=== PATIENT | male | born 1940 | race Caucasian/White ===

== ENCOUNTER 2016-09-28 14:13 | Inpatient (IN) | payer MEDICARE, OTHER ==
[~2016-09-28 14:13] MED LIST: AMLODIPINE-BEN1 EA11 PO; APRODINE PO; ASPIRIN325 M1 PO; CALCIUM + D T1 UDTAB PO; COUMADIN2.5 MG PO; COUMADIN5 MG PO; E-400400 UNIT PO; FOLIC ACID0.4 MG PO; GLUCOSAMIN1 TAB.CHEW PO; MAXZIDE1 TA2 PO; METOPROLOL SUC200 M1 PO; MILK OF MA400 MG/5 M PO; NIASPAN1000 MG PO; NORCO 7.5/325 T1 TAB PO; VITAMIN B6100 MG PO
[2016-09-28] MEDS ORDERED: ATORVASTATIN CA20 M1 PO (14:22)
[2016-09-28] MEDS ORDERED: ALDACTONE50 M1 PO (14:22)
[2016-09-28] MEDS ORDERED: FLOMAX0.4 M1 PO (14:23)
[2016-09-28] MEDS ORDERED: ALEVE220 M4 PO (14:51)
[2016-09-28] MEDS ORDERED: VITAMIN D32000 UNI3 PO (14:51)
[2016-09-28] MEDS ORDERED: ONE DAILY1 EAC4 PO (14:51)
[2016-09-28] MEDS ORDERED: APRODINE PO (14:51)
[2016-09-28 15:03] LABS: BASO % 0.6 % (0-2); EOS % 2.4 % (0-7); EOSINOPHIL ABSOLUTE COUNT 0.2 tho/cmm (0.0-0.7); HCT-HEMATOCRIT 41.4 % (36.0-53.5); HGB-HEMOGLOBIN 14.2 gm/dl (13.5-17.0); LYMPH % 14.3 % (20-45); MCHC MEAN CORPUSCULAR HGB CONC 34.3 % (32.0-36.0); MCV (MEAN CELL VOLUME) 93.2 fl (82.0-96.0); MEAN PLATELET VOLUME 10.6 cmc (9.4-12.4); MONO % 8.7 % (0-12); MONOCYTE ABSOLUTE COUNT 0.6 tho/cmm (0.0-1.2); PLATELET COUNT 179 tho/cmm (150-450); RED BLOOD COUNT 4.44 mil/cmm (4.40-5.70); RED CELL DISTRIBUTION WIDTH 12.9 % (12.4-16.4); WHITE BLOOD COUNT 6.8 tho/cmm (4.0-10.0)
[2016-09-28 15:20] LABS: BLOOD UREA NITROGEN 74 mg/dl (6-24); CARBON DIOXIDE-VENOUS 16 mmol/L (22-32); CHLORIDE 109 mmol/l (96-110); CREATININE 9.53 mg/dl (0.60-1.30); GLUCOSE 112 mg/dL (70-110); SODIUM 135 mmol/L (135-145); eGFR VALUE FOR BLACK 6 mL/Min
[2016-09-28 15:39] LABS: ANION GAP 18 mmol/L (0-20); POTASSIUM 8.3 mmol/L (3.7-5.1)
[2016-09-28 17:15] LABS: PROTHROMBIN TIME 11.9 SECONDS (9.0-13.6)
[2016-09-28 18:00] LABS: URINE SODIUM-RANDOM 127 mmol/L (20-110)
[2016-09-28 18:04] LABS: URINE BILIRUBIN NEGATIVE (NEG); URINE BLOOD NEGATIVE (NEG); URINE GLUCOSE (UA) NEGATIVE (NEG); URINE KETONE NEGATIVE (NEG); URINE LEUKOCYTE ESTERASE POSITIVE (NEG); URINE NITRITE NEGATIVE (NEG); URINE PROTEIN NEGATIVE (NEG)
[2016-09-28 18:06] LABS: URINE APPEARANCE HAZY; URINE COLOR YELLOW
[2016-09-28 18:17] LABS: URINE EPITHELIAL CELLS 0 /[HPF] (0-10); URINE RBC 0 /[HPF] (0-5); URINE WBC 0 /[HPF] (0-5)
[2016-09-28 19:30] LABS: ALB/GLOB RATIO 0.8 (0.8-2.0); ALBUMIN 3.6 g/dl (3.5-5.0); BILIRUBIN,DIRECT 0.2 mg/dl (0.0-0.3); BILIRUBIN,INDIRECT 0.4 mg/dL (0.0-1.0); BILIRUBIN,TOTAL 0.6 mg/dl (0.0-1.5)
[2016-09-28 19:32] LABS: POTASSIUM 7.1 mmol/L (3.7-5.1)
[2016-09-29 04:16] LABS: BASO % 0.6 % (0-2); BASO ABSOLUTE COUNT 0.1 tho/cmm (0.0-0.2); EOS % 3.3 % (0-7); EOSINOPHIL ABSOLUTE COUNT 0.3 tho/cmm (0.0-0.7); HCT-HEMATOCRIT 41.2 % (36.0-53.5); HGB-HEMOGLOBIN 14.1 gm/dl (13.5-17.0); IMMATURE GRANULOCYTES ABSOLUTE 0.02 tho/cmm (0-0.03); IMMATURE GRANULOCYTES PERCENT 0.2 % (0-0.3); LYMPH % 14.8 % (20-45); LYMPH ABSOLUTE COUNT 1.3 tho/cmm (0.8-4.5); MCH (MEAN CORPUSCULAR HGB) 31.8 pg (28.0-32.0); MCHC MEAN CORPUSCULAR HGB CONC 34.2 % (32.0-36.0); MCV (MEAN CELL VOLUME) 92.8 fl (82.0-96.0); MEAN PLATELET VOLUME 10.3 cmc (9.4-12.4); MONO % 14.4 % (0-12); MONOCYTE ABSOLUTE COUNT 1.3 tho/cmm (0.0-1.2); NEUTROPHIL ABSOLUTE COUNT 5.9 tho/cmm (1.6-8.0); NEUTROPHIL-AUTOMATED 5.9 tho/cmm (1.6-8.0); NEUTROPHILS % 66.7 % (40-80); PLATELET COUNT 162 tho/cmm (150-450); RED BLOOD COUNT 4.44 mil/cmm (4.40-5.70); RED CELL DISTRIBUTION WIDTH 12.7 % (12.4-16.4); WHITE BLOOD COUNT 8.8 tho/cmm (4.0-10.0)
[2016-09-29 04:39] LABS: ALB/GLOB RATIO 0.8 (0.8-2.0); ALBUMIN 3.3 g/dl (3.5-5.0); ALKALINE PHOSPHATASE 60 U/L (33-138); ALT/SGPT 36 U/L (12-78); ANION GAP 16 mmol/L (0-20); AST/SGOT 14 U/L (10-40); BILIRUBIN,TOTAL 0.6 mg/dl (0.0-1.5); BLOOD UREA NITROGEN 80 mg/dl (6-24); CALCIUM 8.3 mg/dl (8.5-10.5); CARBON DIOXIDE-VENOUS 20 mmol/L (22-32); CHLORIDE 107 mmol/l (96-110); CREATININE 9.32 mg/dl (0.60-1.30); GLUCOSE 88 mg/dL (70-110); MAGNESIUM 2.1 mg/dl (1.8-2.6); PHOSPHOROUS 5.5 mg/dl (2.5-4.9); SODIUM 137 mmol/L (135-145); eGFR VALUE FOR BLACK 6 mL/Min
[2016-09-29 04:56] LABS: POTASSIUM 6.1 mmol/L (3.7-5.1)
[2016-09-29 10:33] LABS: ANION GAP 16 mmol/L (0-20); BLOOD UREA NITROGEN 75 mg/dl (6-24); CALCIUM 7.9 mg/dl (8.5-10.5); CARBON DIOXIDE-VENOUS 20 mmol/L (22-32); CHLORIDE 107 mmol/l (96-110); CREATININE 8.98 mg/dl (0.60-1.30); GLUCOSE 113 mg/dL (70-110); SODIUM 137 mmol/L (135-145); eGFR VALUE FOR BLACK 6 mL/Min
[2016-09-29 10:39] LABS: POTASSIUM 6.3 mmol/L (3.7-5.1)
[2016-09-29 12:17] LABS: URINE TOTAL PROTEIN-RANDOM 6.1 mg/dl (<11.8)
[2016-09-29 12:39] LABS: URINE PRT/CR RATIO 0.26 Ratio (0.0-0.20)
[2016-09-29 19:49] LABS: POTASSIUM 5.3 mmol/L (3.7-5.1)
[2016-09-30 04:58] LABS: ALB/GLOB RATIO 0.8 (0.8-2.0); ALBUMIN 3.3 g/dl (3.5-5.0); ALKALINE PHOSPHATASE 58 U/L (33-138); ALT/SGPT 33 U/L (12-78); ANION GAP 14 mmol/L (0-20); AST/SGOT 11 U/L (10-40); BILIRUBIN,TOTAL 0.7 mg/dl (0.0-1.5); BLOOD UREA NITROGEN 48 mg/dl (6-24); CALCIUM 7.5 mg/dl (8.5-10.5); CARBON DIOXIDE-VENOUS 22 mmol/L (22-32); CHLORIDE 104 mmol/l (96-110); CREATININE 6.93 mg/dl (0.60-1.30); GLUCOSE 87 mg/dL (70-110); MAGNESIUM 1.7 mg/dl (1.8-2.6); PHOSPHOROUS 5.7 mg/dl (2.5-4.9); SODIUM 134 mmol/L (135-145); eGFR VALUE FOR BLACK 8 mL/Min
[2016-09-30 05:10] LABS: POTASSIUM 6.1 mmol/L (3.7-5.1)
[2016-10-01 07:02] LABS: ANION GAP 15 mmol/L (0-20); BLOOD UREA NITROGEN 34 mg/dl (6-24); CARBON DIOXIDE-VENOUS 24 mmol/L (22-32); CHLORIDE 102 mmol/l (96-110); CREATININE 6.01 mg/dl (0.60-1.30); GLUCOSE 106 mg/dL (70-110); MAGNESIUM 2.3 mg/dl (1.8-2.6); PHOSPHOROUS 4.7 mg/dl (2.5-4.9); SODIUM 136 mmol/L (135-145); eGFR VALUE FOR BLACK 10 mL/Min
[2016-10-01 07:05] LABS: POTASSIUM 4.8 mmol/L (3.7-5.1)
[2016-10-02 07:17] LABS: ANION GAP 16 mmol/L (0-20); BLOOD UREA NITROGEN 29 mg/dl (6-24); CALCIUM 7.7 mg/dl (8.5-10.5); CARBON DIOXIDE-VENOUS 22 mmol/L (22-32); CHLORIDE 104 mmol/l (96-110); CREATININE 5.46 mg/dl (0.60-1.30); GLUCOSE 85 mg/dL (70-110); POTASSIUM 4.9 mmol/L (3.7-5.1); SODIUM 137 mmol/L (135-145); eGFR VALUE FOR BLACK 11 mL/Min
[2016-10-03 05:49] LABS: ANION GAP 14 mmol/L (0-20); BLOOD UREA NITROGEN 29 mg/dl (6-24); CALCIUM 7.9 mg/dl (8.5-10.5); CARBON DIOXIDE-VENOUS 24 mmol/L (22-32); CHLORIDE 101 mmol/l (96-110); CREATININE 5.36 mg/dl (0.60-1.30); GLUCOSE 95 mg/dL (70-110); POTASSIUM 4.6 mmol/L (3.7-5.1); SODIUM 134 mmol/L (135-145); eGFR VALUE FOR BLACK 11 mL/Min
[2016-10-04 05:12] LABS: ANION GAP 16 mmol/L (0-20); CALCIUM 8.4 mg/dl (8.5-10.5); CARBON DIOXIDE-VENOUS 21 mmol/L (22-32); CHLORIDE 102 mmol/l (96-110); CREATININE 6.69 mg/dl (0.60-1.30); GLUCOSE 99 mg/dL (70-110); POTASSIUM 4.7 mmol/L (3.7-5.1); SODIUM 134 mmol/L (135-145); eGFR VALUE FOR BLACK 8 mL/Min
[2016-10-04 05:33] LABS: BLOOD UREA NITROGEN 47 mg/dl (6-24)
[2016-10-05 05:11] LABS: ANION GAP 13 mmol/L (0-20); BLOOD UREA NITROGEN 29 mg/dl (6-24); CARBON DIOXIDE-VENOUS 24 mmol/L (22-32); CHLORIDE 102 mmol/l (96-110); GLUCOSE 93 mg/dL (70-110); POTASSIUM 4.4 mmol/L (3.7-5.1); SODIUM 135 mmol/L (135-145); eGFR VALUE FOR BLACK 14 mL/Min
[2016-10-05 05:17] LABS: CREATININE 4.51 mg/dl (0.60-1.30)
[2016-10-06 05:36] LABS: CALCIUM 8.3 mg/dl (8.5-10.5); CARBON DIOXIDE-VENOUS 23 mmol/L (22-32); CHLORIDE 103 mmol/l (96-110); CREATININE 5.12 mg/dl (0.60-1.30); GLUCOSE 87 mg/dL (70-110); SODIUM 137 mmol/L (135-145); eGFR VALUE FOR BLACK 12 mL/Min
[2016-10-06 05:38] LABS: ANION GAP 16 mmol/L (0-20); BLOOD UREA NITROGEN 45 mg/dl (6-24); POTASSIUM 4.5 mmol/L (3.7-5.1)
[2016-10-07 06:49] LABS: ANION GAP 13 mmol/L (0-20); BLOOD UREA NITROGEN 35 mg/dl (6-24); CALCIUM 8.5 mg/dl (8.5-10.5); CARBON DIOXIDE-VENOUS 25 mmol/L (22-32); CHLORIDE 105 mmol/l (96-110); GLUCOSE 85 mg/dL (70-110); POTASSIUM 4.4 mmol/L (3.7-5.1); SODIUM 139 mmol/L (135-145); eGFR VALUE FOR BLACK 17 mL/Min
[2016-10-07 06:50] LABS: CREATININE 3.77 mg/dl (0.60-1.30)
[2016-10-08 06:03] LABS: ANION GAP 14 mmol/L (0-20); BLOOD UREA NITROGEN 43 mg/dl (6-24); CALCIUM 8.4 mg/dl (8.5-10.5); CARBON DIOXIDE-VENOUS 23 mmol/L (22-32); CHLORIDE 104 mmol/l (96-110); CREATININE 4.33 mg/dl (0.60-1.30); GLUCOSE 89 mg/dL (70-110); SODIUM 137 mmol/L (135-145); eGFR VALUE FOR BLACK 14 mL/Min
[2016-10-08 06:15] LABS: POTASSIUM 4.2 mmol/L (3.7-5.1)
[2016-10-09 05:14] LABS: ANION GAP 14 mmol/L (0-20); BLOOD UREA NITROGEN 25 mg/dl (6-24); CARBON DIOXIDE-VENOUS 24 mmol/L (22-32); CHLORIDE 101 mmol/l (96-110); CREATININE 3.31 mg/dl (0.60-1.30); GLUCOSE 91 mg/dL (70-110); POTASSIUM 3.9 mmol/L (3.7-5.1); SODIUM 135 mmol/L (135-145); eGFR VALUE FOR BLACK 20 mL/Min
[2016-10-10 06:26] LABS: ANION GAP 15 mmol/L (0-20); BLOOD UREA NITROGEN 37 mg/dl (6-24); CALCIUM 8.5 mg/dl (8.5-10.5); CARBON DIOXIDE-VENOUS 23 mmol/L (22-32); CHLORIDE 103 mmol/l (96-110); GLUCOSE 85 mg/dL (70-110); POTASSIUM 3.9 mmol/L (3.7-5.1); SODIUM 137 mmol/L (135-145); eGFR VALUE FOR BLACK 15 mL/Min
[2016-10-11 06:55] LABS: ALBUMIN 2.9 g/dl (3.5-5.0); ANION GAP 13 mmol/L (0-20); BLOOD UREA NITROGEN 48 mg/dl (6-24); CALCIUM 8.5 mg/dl (8.5-10.5); CARBON DIOXIDE-VENOUS 24 mmol/L (22-32); CHLORIDE 103 mmol/l (96-110); CREATININE 4.63 mg/dl (0.60-1.30); GLUCOSE 90 mg/dL (70-110); PHOSPHOROUS 4.7 mg/dl (2.5-4.9); POTASSIUM 3.9 mmol/L (3.7-5.1); SODIUM 136 mmol/L (135-145); eGFR VALUE FOR BLACK 13 mL/Min
[2016-10-12 04:47] LABS: ANION GAP 13 mmol/L (0-20); BLOOD UREA NITROGEN 24 mg/dl (6-24); CARBON DIOXIDE-VENOUS 25 mmol/L (22-32); CHLORIDE 103 mmol/l (96-110); GLUCOSE 92 mg/dL (70-110); SODIUM 137 mmol/L (135-145); eGFR VALUE FOR BLACK 19 mL/Min
[2016-10-12 05:02] LABS: CREATININE 3.43 mg/dl (0.60-1.30)
[2016-10-12] MEDS ORDERED: NORVASC10 M2 PO (12:42)
[2016-12-16] MEDS ORDERED: KEFLEX500 M4 PO (19:31)
[2017-01-20] MEDS ORDERED: TYLENOL EXTRA500 M1 PO (13:59)
[2017-01-20] MEDS ORDERED: A (15:23)
== END 2016-10-12 13:50 | DRG 674 ==
LOC: EDMED 14:13 → EMR2 18:17 → CCU 20:00 → PCUB 09-29 09:34 → 5WE 10-11 16:38
PROVIDERS: Emergency Medicine; Family Medicine; Internal Medicine; Internal Medicine Nephrology; ADMIT Hospitalist
PROC: 0JH63XZ Insertion of Tunneled Vascular Access Device into Chest Subcutaneous Tissue and Fascia, Percutaneous Approach (ICD-10-PCS; principal; 2016-09-29)
PROC: 02H633Z Insertion of Infusion Device into Right Atrium, Percutaneous Approach (ICD-10-PCS; 2016-09-29)
PROC: 5A1D60Z (ICD-10-PCS; 2016-09-29)
PROC: B214YZZ Fluoroscopy of Right Heart using Other Contrast (ICD-10-PCS; 2016-09-29)
DX: N17.9 Acute kidney failure, unspecified (principal); E87.2 Acidosis; E87.5 Hyperkalemia; E86.0 Dehydration; E78.5 Hyperlipidemia, unspecified; C44.90 Unspecified malignant neoplasm of skin, unspecified; I12.9 Hypertensive chronic kidney disease with stage 1 through stage 4 chronic kidney disease, or unspecified chronic kidney disease; D63.1 Anemia in chronic kidney disease; N40.0 Benign prostatic hyperplasia without lower urinary tract symptoms; Z85.46 Personal history of malignant neoplasm of prostate; Z87.891 Personal history of nicotine dependence; Z88.0 Allergy status to penicillin; N18.2 Chronic kidney disease, stage 2 (mild); R06.02 Shortness of breath; N13.30 Unspecified hydronephrosis; Z99.2 Dependence on renal dialysis; Z23 Encounter for immunization
CPT/HCPCS: A9540; A9558; C1750; C1769; C8929; G0009; J0610; J1644; J1815; J1940; J2250; J3010; J3475; J7030